=== PATIENT | female | born 1990 | race Caucasian/White ===

== ENCOUNTER 2023-09-24 10:20 | Emergency (ER) | payer OTHER, SELFPAY ==
[2023-09-24 10:22] VITALS: BP 115/66
[2023-09-24] MEDS: AUGMENTIN 875 MG/125 MG 1 TABLET PO (11:51)
--- NOTE | 2023-09-24 11:52 | ED.GENMED ---
History of Present Illness
General
Chief Complaint: Breast Problem
Source: patient
Exam Limitations: none
Time Seen by Provider: 09/24/23 10:50
Nursing documentation reviewed up to this point in time: agreed with
Travel History
Have you had any contact with someone who has COVID-19?: No
Do you have any symptoms of coronavirus? Fever > 100 degrees, chills, cough, shortness of breath, sore throat, loss of taste or smell, muscle aches, or headache?: No
History of Present Illness
History of Present Illness:
33-year-old female presenting to the emergency department today with concerns of left-sided breast discomfort and swelling mainly to the nipple area worsening over the past 2 days she is concerned due to her mother having recent diagnosis of breast
cancer. She denies any specific history of this and does get routine breast checks by her outpatient doctor she denies any systemic symptoms nausea vomiting or fevers.
Review of Systems
Review of Systems
Allergies reviewed?: Yes
All Other Systems: ROS reviewed and negative except as documented in HPI and ROS
Phy Exam
Physical Exam
Physical Exam:
GENERAL: Alert , in no apparent distress
EYE: pupils equal and reactive
NECK: Supple, no significant adenopathy.
ENT: o/p clr, mmm.
CARDIAC: Swelling to the left nipple with slight extension into the areola but no significant palpable mass in the surrounding breast tissue. Breast in general are symmetrical bilaterally when palpating. No specific discharge. No induration
regular rate and rhythm .
LUNGS: Clear breath sounds bilaterally, no acute respiratory distress, no wheezes/rales/rhonchi
ABDOMEN: Soft, without focal tenderness, no r/g, no cvat
NEUROLOGICAL: Alert and oriented, no focal neuro deficits
SKIN: Warm and dry, skin intact.
MUSCULOSKELETAL: No edema, well perfused.
PSYCH: Normal and appropriate interaction.
Course
Orders/Labs/Results
Orders:
Orders
09/24/23 11:15
Amoxicillin 875 mg/Clav 125 mg [Augmentin 875 mg/125 mg] 1 tablet PO NOW STA
Vital Signs
Initial and Last Documented VS:
Initial Vital Signs
Pulse Resp BP Pulse Ox
88 16 115/66 99
09/24/23 10:22 09/24/23 10:22 09/24/23 10:22 09/24/23 10:22
Last Documented Vital Signs
Pulse Resp BP Pulse Ox
88 16 115/66 99
09/24/23 10:22 09/24/23 10:22 09/24/23 10:22 09/24/23 10:22
MDM/Problems Addressed
MDM/Problems Addressed:
33-year-old female presenting to the emergency department today with concerns of swelling discomfort to the left nipple over the past few days was concerned concerning her mother was recently diagnosed with breast cancer. Here she does have some
swelling to the nipple itself some minimal swelling into the areola but no significant masses or swelling in the breast tissue. No fluctuance or induration. Patient was started on antibiotics for potential mastitis and otherwise was given
information for breast follow-up. Return precautions given.
*Critical Care Note
Total Time (30-74mins, 75-104mins- exclusive of procedures): Not Applicable
ED Attending Note
-
Portions of this chart may have been created with voice recognition software.� Occasional wrong word or��sound alike� substitutions may have occurred due to the inherent limitations of voice recognition software.
Discharge Plan
Departure
Patient Disposition: Home (Routine Discharge)
Date of Disposition: 09/24/23
Time of Disposition: 12:02
Patient with high blood pressure during this ER visit?: No
Condition: Good
Covid-19: Not Applicable
Discharge Problem:
Mastitis
Instructions: Mastitis (DC)
Prescriptions:
New
amoxicillin-pot clavulanate 875-125 mg tablet
1 tab PO BID 7 Days Qty: 14 0RF
No Action
PNV cmb#95-ferrous fumarate-FA [] 1 EACH tablet
1 ea PO DAILY
Referrals:
Carmen Armando MD [Active] - Follow up in 1 week
Kori Riley MD [Family Provider] -
Activity Restrictions/Additional Instructions:
You came to the emergency department today with concerns of swelling discomfort to your left nipple. This appears to be consistent with mastitis. Please take Augmentin twice daily over the next week and use warm compresses to the area. Please
follow closely with the breast doctor. Return to the emergency department for any worsening, new or concerning symptoms.
Interventions
Interventions:
*Risk Screen - Suicide Last Done: 09/24/23 11:10
*General Assessment Last Done: 09/24/23 10:22
*Neglect/Abuse Screening Last Done: 09/24/23 11:10
ED- Fall Risk Assessment Last Done: 09/24/23 11:10
*ED COVID-19 Vaccine History Last Done: 09/24/23 10:22
ED-Skin Assessment Last Done: 09/24/23 11:10
[2023-09-24 12:21] VITALS: BP 95/79
== END 2023-09-24 13:22 | disposition home or self-care (01) ==
LOC: EMR 10:20
PROVIDERS: EMERGENCY PHYSICIAN Emergency Medicine; FAMILY PHYSICIAN Internal Medicine; OTHER PHYSICIAN Obstetrics & Gynecology
DX: N61.0 Mastitis without abscess (principal); Z80.3 Family history of malignant neoplasm of breast
CPT/HCPCS: 99282